=== PATIENT | female | born 1980 | race Caucasian/White ===

== ENCOUNTER 2025-11-02 10:42 | Day surgery (SDC) | payer BC ==
[2025-10-31 10:39] VITALS: BMI 27.4
[2025-10-31 11:07] LABS: Hematocrit 43.0 % (34.9-44.5); Hemoglobin 14.6 g/dL (12.0-15.5); Mean Corpuscular Hemoglobin 29.6 pg (27.0-33.0); Mean Corpuscular Volume 87.0 fL (81.6-98.3); Platelet Count 281 10x3/uL (150-450); Red Blood Cell (RBC) Count 4.94 10x6/uL (3.90-5.03); White Blood Cell (WBC) Count 6.21 10x3/uL (3.5-10.5)
[2025-10-31 11:17] LABS: BHCG - Serum Negative (NEGATIVE); Pregs Control Background? CLEAR/WHITE (CLR/WHITE); Pregs Control Bar Appear? YES (CONTROL BAR)
[2025-11-02] MEDS ORDERED: Gabapentin 300 MG CAP ONE (11:17)
[2025-11-02] MEDS ORDERED: metroNIDAZOLE 500 MG (100 mL) BAG ONE (11:18)
[2025-11-02] MEDS ORDERED: Famotidine/PF 20 mg/2ml Vial ONE (11:18)
[2025-11-02] MEDS ORDERED: Oxytocin 10 UNITS/ML VIAL ONE ×2 (13:06→13:08)
[2025-11-02] MEDS ORDERED: Sevoflurane 250 ML INH ANEST BOTTLE ONE (13:06)
[2025-11-02] MEDS ORDERED: Rocuronium Bromide 10 MG/ML (10ML VIAL) ONE (13:30)
[2025-11-02] MEDS ORDERED: PROPOFOL 20 ML ONE (13:30)
[2025-11-02] MEDS ORDERED: Ondansetron PF 4 MG/2 ML Vial ONE (13:30)
[2025-11-02] MEDS ORDERED: CEFAZOLIN 2 GM VIAL ONE (13:37)
[2025-11-02] MEDS ORDERED: SUGAMMADEX SODIUM 200 MG/2 ML VIAL ONE (14:07)
[2025-11-02] MEDS ORDERED: Tranexamic Acid 1,000 MG/10 ML VIAL ONE (14:29)
[2025-11-02] MEDS ORDERED: HYDROcodone/Acetaminophen 5/325 mg Tablet ONE (16:23)
== END 2025-11-02 17:58 | disposition home or self-care (01) ==
LOC: CSHSDC 10:42
PROVIDERS: ATTEND Student in an Organized Health Care Education/Training Program
PROC: 0UT98ZZ Resection of Uterus, Via Natural or Artificial Opening Endoscopic (ICD-10-PCS; principal; 2025-11-02)
DX: D25.1 Intramural leiomyoma of uterus (principal); N92.1 Excessive and frequent menstruation with irregular cycle; N80.03 Adenomyosis of the uterus; N83.01 Follicular cyst of right ovary; Z91.018 Allergy to other foods; Z91.040 Latex allergy status
CPT/HCPCS: 84703; 85027; 86850; 86900; 86901; 88307; C1889; J1100; J1308; J2250; J2405; J2590; J2704; J3010; Q0162